=== PATIENT | male | born 1960 | race Caucasian/White ===

== ENCOUNTER 2019-10-20 06:17 | Emergency (ER) | payer BC, SELFPAY ==
--- NOTE | ~2019-10-20 | CT_ITS ---
EXAMINATION: CT abdomen pelvis wo con DATE: 10/20/2019 07:13 INDICATION: Left flank pain. Left lower back pain. TECHNIQUE: Computed tomography (CT) of the abdomen and pelvis was performed without intravenous contr ast. Automated exposure control and iterative reconstruction technique were employed. The dose-length product was 701.04 mGy-cm. COMPARISON: None. FINDINGS: The visualized portions of the lung bases demonstrate mild atelectasis. No pleural effusion . The heart size is normal. No pericardial effusion. The liver and spleen are normal. There are galls tones in the gallbladder, which is normal in size. The pancreas and adrenal glands are normal. 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 There is no uro lithiasis. The prostate is mildly enlarged. There are no dilated loops of bowel. The appendix is norm al. There are no pathologically enlarged lymph nodes. There is no free intraperitoneal fluid. Promine nt fat in left inguinal canal may be a hernia. There is mild thoracolumbar spondylosis. There are noble dging endplate osteophytes at multiple levels in the thoracic spine, consistent with diffuse idiopath ic skeletal hyperostosis (DISH). IMPRESSION: 1. No urolithiasis. 2. Cholelithiasis. No evidence of acute cholecystitis. 3. Asymmetric prominent fat in the left inguinal canal, which may be a hernia. Reviewed, dictated and finalized at location A.
--- NOTE | 2019-10-20 06:20 | ED.BACK ---
HPI - Back Pain/Injury General Chief Complaint: Back Pain/Injury <Graciela Julio MD - Last Filed: 10/20/19 07:20> Stated Complaint: Really bad pain in back <Graciela Julio MD - Last Filed: 10/20/19 07:20> Time Seen by Provider: 10/20/19 06:22 <Graciela Julio MD - Last Filed: 10/20/19 07:20> Source: patient and family <Graciela Julio MD - Last Filed: 10/20/19 07:20> Mode of arrival: ambulatory <Graciela Julio MD - Last Filed: 10/20/19 07:20> Limitations: no limitations <Graciela Julio MD - Last Filed: 10/20/19 07:20> History of Present Illness HPI Narrative: Patient is a 59-year-old male who presents for evaluation of left lower back pain. Pain is described as sharp, stabbing in nature in the left flank region. Patient states symptoms started around midnight and have progressed into the morning. Patient denies any recent heavy lifting. He reports radiation of the pain down his bottom and his left leg. He states typically he has back pain on the right side of his lower back but has never experienced left-sided back pain before. Pt states this feels different than typical lower back pain. He denies testicular pain, hematuria, dysuria. No suprapubic pain or upper abdominal pain. No fever or chest pain. Patient has had some nausea. No history of nephrolithiasis. Movement does aggravate the pain. <Graciela Julio MD - Last Filed: 10/20/19 07:20> Related Data Allergies/Adverse Reactions: Allergies Allergy/AdvReac Type Severity Reaction Status Date / Time Penicillins Allergy Unknown UNKNOWN Verified 10/20/19 06:24 phenytoin Allergy Unknown UNKNOWN Verified 10/20/19 06:24 <Graciela Julio MD - Last Filed: 10/20/19 07:20> Review of Systems Review of Systems: Narrative: CONSTITUTIONAL: Denies fever, chills, or sweats. CARDIOVASCULAR: Denies chest pain RESPIRATORY: Denies cough or dyspnea. GASTROINTESTINAL: Denies abdominal pain, nausea, vomiting, or diarrhea. GENITOURINARY: Denies dysuria or hematuria. SKIN: Denies rash or itching. MUSCULOSKELETAL: Reports left lower back pain, denies joint pain or myalgias NEUROLOGIC: Denies headache, numbness, or weakness. <Graciela Julio MD - Last Filed: 10/20/19 07:20> [facility] Past Medical History Medical History: Medical History (Updated 10/20/19 @ 08:46 by Kishor Quijano DO) Asthma Bronchitis Epilepsy Pneumonia <Graciela Julio MD - Last Filed: 10/20/19 07:20> Surgical History Surgical History: Surgical History (Updated 10/20/19 @ 06:21 by Graciela Julio MD) History of arthroscopic knee surgery <Graciela Julio MD - Last Filed: 10/20/19 07:20> Exam Narrative: Exam Narrative: GENERAL: Awake, alert, conversant HEAD: Normocephalic, atraumatic. EYES: PERRLA and EOMI. ENT: Nares clear, no rhinorrhea or epistaxis. Mucous membranes moist. NECK: Supple. CHEST: No respiratory distress, breathing even and non labored HEART: Regular rate, sinus rhythm ABDOMEN non distended, non tender, no suprapubic pain Thorax: Positive left lumbar paraspinal tenderness, positive left CVA tenderness which reproduces pain, but not exactly per patient EXTREMITIES: Normal range of motion. No edema. SKIN: Warm, dry, no rash. NEURO:No focal deficits. Alert and oriented x3 <Graciela Julio MD - Last Filed: 10/20/19 07:20> Course Course Emergency Course: Care signed out to me at shift change. Seen and evaluated by myself. Agree with initial H&P. Tender palpation left lower back paravertebral muscles L3-5 pain worse with movement. Discussed with patient results of workup and diagnosis. Discussed need for follow-up with primary care, proper use of medication, and reasons to return to the emergency department. Patient understands and agrees to current treatment plan <Kishor Quijano DO - Last Filed: 10/20/19 08:47> Vital Signs Vital signs: Vital Signs Temperature 98.0 F 10/20/19 0
[2019-10-20 06:21] VITALS: BP 136/76; PULSE 82; RESP 15; TEMP 36.7; O2SAT 100
[2019-10-20] MEDS: MORPHINE SULFATE 4 MG/ML INJ IV PUSH (06:53)
[2019-10-20] MEDS: ONDANSETRON INJ 4 MG/2 ML VIAL IV PUSH (06:54)
--- NOTE | 2019-10-20 06:55 | PC.NURSE ---
pt unable to void at this time.
[2019-10-20 06:56] LABS: Basophils Absolute Auto 0.1 K/mm3 (0.0-0.1); Basophils Percent Auto 1.2 % (0.2-1.2); Eosinophils Absolute Auto 0.2 K/mm3 (0-0.3); Eosinophils Percent Auto 2.3 % (0-4.4); Hematocrit 47.3 % (42.0-52.0); Hemoglobin 15.7 g/dL (14.0-18.0); Immature Granulocyte Absolute 0.02 K/mm3 (0.00-0.031); Immature Granulocyte Percent A 0.3 % (0-0.5); Lymphocytes Absolute Auto 1.54 K/mm3 (0.9-3.2); Lymphocytes Percent Auto 23.4 % (18.3-44.2); Mean Corpuscular HGB Conc 33.2 g/dl (32-36); Mean Corpuscular Volume 87.4 fl (80-100); Mean Platelet Volume 10.7 fl (7.4-10.4); Monocytes Absolute Auto 0.4 K/mm3 (0.1-0.6); Monocytes Percent Auto 6.4 % (2.6-8.5); Neutrophils Absolute Auto 4.4 K/mm3 (1.3-6.7); Neutrophils Percent Auto 66.4 % (45.5-73.1); Platelet Count Result 264 k/mm3 (150-375); Red Blood Count 5.41 M/mm3 (4.6-6.20); Red Cell Distribution Width 11.9 % (11.5-14.5); White Blood Count 6.6 K/mm3 (4.5-10.0)
[2019-10-20] MEDS: ACETAMINOPHEN 500 MG TABLET 1000 MG PO (06:59)
[2019-10-20 07:04] VITALS: BP 125/78; PULSE 67; RESP 19; O2SAT 97
[2019-10-20 07:08] LABS: Blood Urea Nitrogen 16 mg/dL (9-20); Calcium 9.8 mg/dL (8.4-10.2); Carbon Dioxide 22 mmol/L (22-30); Chloride 103 mmol/L (98-107); Estimated Glomerular Filt Rate > 60; Glucose 149 mg/dL (75-110); Potassium 4.2 mmol/L (3.4-5.0); Sodium 138 mmol/L (137-145)
[2019-10-20 08:37] LABS: Add Urine Microscopic? YES; Appearance Urine Clear (Clear); Bilirubin Urine Negative (Negative); Blood Urine Negative (Negative); Color Urine Yellow (Yellow); Glucose Urine UA 3+ mg/dL (Negative); Ketones Urine Negative (Negative); Leukocyte Esterase Ur Negative LEU/UL (Negative); Nitrate Urine Negative (Negative); Protein Urine Negative (Negative); RBC Urine 0-2 /hpf (0-2); Specific Grav Ur 1.037 (1.001-1.035); Squamous Epithelial Cell Urine Rare /hpf (Few); Urobilinogen Urine Negative mg/dL (<2.0); WBC Urine 0-3 /hpf
[2019-10-20 08:56] VITALS: BP 135/88; PULSE 65; RESP 16
== END 2019-10-20 08:58 | disposition home or self-care (01) ==
PROVIDERS: Emergency Medicine; Emergency Provider Emergency Medicine; PCP Family Medicine
DX: M54.5 Low back pain (principal); J45.909 Unspecified asthma, uncomplicated; G40.909 Epilepsy, unspecified, not intractable, without status epilepticus
CPT/HCPCS: 36415; 74176; 80048; 81001; 85025; 96374; 96375; 99284; A9270; J2270; J2405

== ENCOUNTER 2020-05-31 03:54 | Emergency (ER) | payer BC, SELFPAY ==
--- NOTE | ~2020-05-31 | XR_ITS ---
EXAMINATION: XR chest 1V portable EXAM DATE: 05/31/2020 04:48 INDICATION: Cough and shortness of breath. TECHNIQUE: Portable AP frontal chest x-ray was obtained. Comparison is made to prior examination from 04/22/2016. FINDINGS: The lungs are clear. There are no pleural effusions. The cardiomediastinal silhouette is within normal limits. There is no pneumothorax suspected. The bones and soft tissues are unremarkab le. Mild hyperinflation. IMPRESSION: Mild hyperinflation. Reviewed, dictated and finalized at location A. AT CONTROL MANAGER IMPRESSION: Mild hyperinflation.
[2020-05-31 04:02] VITALS: BP 149/93; PULSE 88; RESP 19; TEMP 37; O2SAT 99
--- NOTE | 2020-05-31 04:12 | ECG_ITS ---
Measurements Intervals [place] Rate: 85 P: 60 ME: 128 QRS: 41 QRSD: 101 T: 54 QT: 341 QTc: 408 Interpretive Statements SINUS RHYTHM VENTRICULAR PREMATURE COMPLEX BASELINE ARTIFACT- I, III, AVL BORDERLINE ECG Electronically Signed On 05-31-2020 6:31:46 PREVENTIVE MAINTENANCE COORDINATOR by Dago Vegas D.O.
--- NOTE | 2020-05-31 04:15 | ED.GENADULT ---
HPI - General Adult General Chief complaint: Unspecified Stated complaint: Feel like crap Time Seen by Provider: 05/31/20 04:03 History of Present Illness HPI narrative: Patient [id number] present chief, feels like crap patient states that today he started feeling generalized body aches report that he has had a little bit of a cough states that he had some runny nose and also reports that when he drank some orange juice his stomach felt nauseated and kind of bloated. Patient denies fever denies chills reports that he is not had Covid exposure reports that he has been wearing a mask. Related Data Allergies Allergy/AdvReac Type Severity Reaction Status Date / Time Penicillins Allergy Unknown UNKNOWN Verified 05/31/20 04:05 phenytoin Allergy Unknown UNKNOWN Verified 05/31/20 04:05 Review of Systems Review of Systems: Narrative: A 10 system review of systems was completed on the patient and is negative except for what is stated in the HPI. Nursing and ancillary documentation was reviewed. [facility] Past Medical History Medical History Asthma Bronchitis Epilepsy Pneumonia Surgical History Surgical History History of arthroscopic knee surgery Social History Social History Gender identity (if verbalized by the patient): Male Exam Narrative: Exam Narrative: GENERAL: Well-appearing, well-nourished, and in no acute distress. HEAD: Normocephalic, atraumatic. EYES: PERRLA and EOMI. ENT: Nares clear, no rhinorrhea or epistaxis. Mucous membranes moist. NECK: Supple. CHEST: Clear to auscultation. No respiratory distress. HEART: Regular rate and rhythm. No murmur heard. Normal peripheral pulses. ABDOMEN: Soft, nontender, nondistended, normal active bowel sounds. EXTREMITIES: Normal range of motion. No edema. SKIN: Warm, dry, no rash. NEURO: No focal deficits. Alert and oriented x3. PSYCH: Normal mood and affect. Course Vital Signs Vital signs: Vital Signs Temperature 37.0 C 05/31/20 04:02 Pulse Rate 88 05/31/20 04:02 Respiratory Rate 19 05/31/20 04:02 Blood Pressure 149/93 H 05/31/20 04:02 Pulse Oximetry 99 05/31/20 04:02 Temperature 37.0 C 05/31/20 04:02 Pulse Rate 88 05/31/20 04:02 Respiratory Rate 19 05/31/20 04:02 Blood Pressure 149/93 H 05/31/20 04:02 Pulse Oximetry 99 05/31/20 04:02 Medical Decision Making Vital Signs Vital Signs: Vital Signs Temperature 37.0 C 05/31/20 04:02 Pulse Rate 88 05/31/20 04:02 Respiratory Rate 19 05/31/20 04:02 Blood Pressure 149/93 H 05/31/20 04:02 Pulse Oximetry 99 05/31/20 04:02 Temperature 37.0 C 05/31/20 04:02 Pulse Rate 88 05/31/20 04:02 Respiratory Rate 19 05/31/20 04:02 Blood Pressure 149/93 H 05/31/20 04:02 Pulse Oximetry 99 05/31/20 04:02 Lab Data Result diagrams: 05/31/20 04:20 05/31/20 04:20 Labs: Lab Results 05/31/20 05/31/20 05/31/20 Range/Units 04:20 04:20 04:20 WBC 4.3 L (4.5-10.0) K/mm3 RBC 4.85 (4.6-6.20) M/mm3 Hgb 14.3 (14.0-18.0) g/dL Hct 42.1 (42.0-52.0) % MCV 86.8 (80-100) fl MCH 29.5 (26-34) pg MCHC 34.0 (32-36) g/dl RDW 11.9 (11.5-14.5) % Plt Count 193 (150-375) k/mm3 MPV 9.9 (7.4-10.4) fl Immature Gran % (Auto) 0.2 (0-0.5) % Neut % (Auto) 62.7 (45.5-73.1) % Lymph % (Auto) 18.6 (18.3-44.2) % [place] % (Auto) 16.2 H (2.6-8.5) % Eos % (Auto) 1.6 (0-4.4) % Baso % (Auto) 0.7 (0.2-1.2) % Lymph # (Auto) 0.80 L (0.9-3.2) K/mm3 [place] # (Auto) 0.7 H (0.1-0.6) K/mm3 Eos # (Auto) 0.1 (0-0.3) K/mm3 Baso # (Auto) 0.0 (0.0-0.1) K/mm3 Abs Immat Gran (auto) 0.01 (0.00-0.031) K/mm3 Absolute Neuts (auto) 2.7 (1.3-6.7) K/mm3 Absolute Nucleated RBC 0.0 (0.0-0.012) K/
[2020-05-31 04:27] LABS: Basophils Percent Auto 0.7 % (0.2-1.2); Eosinophils Absolute Auto 0.1 K/mm3 (0-0.3); Eosinophils Percent Auto 1.6 % (0-4.4); Hematocrit 42.1 % (42.0-52.0); Hemoglobin 14.3 g/dL (14.0-18.0); Immature Granulocyte Absolute 0.01 K/mm3 (0.00-0.031); Immature Granulocyte Percent A 0.2 % (0-0.5); Lymphocytes Percent Auto 18.6 % (18.3-44.2); Mean Corpuscular Hemoglobin 29.5 pg (26-34); Mean Corpuscular Volume 86.8 fl (80-100); Mean Platelet Volume 9.9 fl (7.4-10.4); Monocytes Absolute Auto 0.7 K/mm3 (0.1-0.6); Monocytes Percent Auto 16.2 % (2.6-8.5); Neutrophils Absolute Auto 2.7 K/mm3 (1.3-6.7); Neutrophils Percent Auto 62.7 % (45.5-73.1); Platelet Count Result 193 k/mm3 (150-375); Red Blood Count 4.85 M/mm3 (4.6-6.20); Red Cell Distribution Width 11.9 % (11.5-14.5); White Blood Count 4.3 K/mm3 (4.5-10.0)
[2020-05-31] MEDS: SODIUM CHLORIDE 0.9% IV 1,000 ML 999 ML IV CONT (04:28)
[2020-05-31] MEDS: ONDANSETRON INJ 4 MG/2 ML VIAL IV PUSH (04:28)
[2020-05-31 04:38] LABS: Add Urine Microscopic? YES; Appearance Urine Clear (Clear); Bilirubin Urine Negative (Negative); Blood Urine Negative (Negative); Color Urine Straw (Yellow); Glucose Urine UA 3+ mg/dL (Negative); Ketones Urine Negative (Negative); Leukocyte Esterase Ur Negative LEU/UL (Negative); Nitrate Urine Negative (Negative); Protein Urine Negative (Negative); RBC Urine 0-2 /hpf (0-2); Squamous Epithelial Cell Urine Rare /hpf (Few); Urobilinogen Urine Negative mg/dL (<2.0); WBC Urine 0-3 /hpf
[2020-05-31 04:43] LABS: Alanine Aminotransferase 21 U/L (4-50); Albumin Level 4.4 g/dL (3.5-5.1); Alkaline Phosphatase 94 U/L (38-126); Anion Gap 6 mmol/L (8-16); Aspartate Amino Transferase 31 U/L (17-59); Bilirubin,Total 1.3 mg/dL (0.2-1.3); Blood Urea Nitrogen 12 mg/dL (9-20); Calcium 8.9 mg/dL (8.4-10.2); Carbon Dioxide 28 mmol/L (22-30); Chloride 102 mmol/L (98-107); Estimated CRCL calculation 115 ml/min; Estimated Glomerular Filt Rate > 60; Glucose 155 mg/dL (75-110); Lactic Acid Reflex 1.8 mmol/L (0.7-2.1); Lipase 74 U/L (23-300); Potassium 4.1 mmol/L (3.4-5.0); Sodium 136 mmol/L (137-145)
[2020-05-31 04:54] LABS: Troponin I < 0.012 ng/mL (0.000-0.034)
[2020-05-31 05:28] VITALS: BP 130/87; PULSE 98; RESP 17; O2SAT 97
[2020-05-31 14:05] LABS: SARS-CoV-2 RNA PCR Positive
== END 2020-05-31 05:28 | disposition home or self-care (01) ==
PROVIDERS: Emergency Provider Emergency Medicine; Family Provider Family Medicine; PCP Family Medicine
DX: U07.1 COVID-19 (principal); J45.909 Unspecified asthma, uncomplicated; I49.3 Ventricular premature depolarization
CPT/HCPCS: 36415; 71045; 80053; 81001; 83605; 83690; 84484; 85025; 93005; 96361; 96374; 99284; C9803; J2405; J7030; U0003; U0005

== ENCOUNTER 2020-06-13 11:52 | Outpatient (CLI) | payer BC, SELFPAY ==
--- NOTE | ~2020-06-13 | XR_ITS ---
EXAMINATION: XR chest 2V DATE: 06/13/2020 12:16 INDICATION: COVID-19 pneumonia. TECHNIQUE: Frontal and lateral views of the chest were obtained. COMPARISON: Chest single view 05/31/2020, CT abdomen and pelvis 10/20/2019 FINDINGS: There is mild scarring at the lung apices. There are peripheral airspace opacities in left mid and lower lung zones and right midlung zone. No pleural effusion or pneumothorax. The heart size is normal. IMPRESSION: 1. Peripheral airspace opacities in left mid and lower lung zones and right midlung zone, consistent with pneumonia. Reviewed, dictated and finalized at location A. ESS IMPROVEMENT MANAGER IMPRESSION: 1. Peripheral airspace opacities in left mid and lower lung zones and right mid lung zone, consistent with pneumonia.
== END 2020-06-13 11:53 | disposition home or self-care (01) ==
LOC: ANHIMG 12:00
PROVIDERS: PCP Family Medicine; Visit Provider Family Medicine
DX: U07.1 COVID-19 (principal); J12.82 Pneumonia due to coronavirus disease 2019; R91.8 Other nonspecific abnormal finding of lung field
CPT/HCPCS: 71046

== ENCOUNTER 2020-07-05 13:20 | Emergency (ER) | payer BC, SELFPAY ==
--- NOTE | ~2020-07-05 | CT_ITS ---
EXAMINATION: CT abdomen pelvis w con DATE: 07/05/2020 15:45 INDICATION: Left-sided abdominal pain TECHNIQUE: Computed tomography (CT) of the abdomen and pelvis was performed with 100 mL Omnipaque-350 intravenous contrast. Automated exposure control and iterative reconstruction technique were employe d. The dose-length product was 600.55 mGy-cm. COMPARISON: 07/05/2020 FINDINGS: Mild linear discoid atelectasis/scarring at the bilateral lung bases. Heart size is normal. No perica rdial or pleural effusion. Again seen are small high attenuation gallstones layering in the dependent aspect of the otherwise normal-appearing gallbladder. 11 mm peripheral low-attenuation lesion in seg ment IVb of the liver which could represent a small hemangioma. Spleen, pancreas, bilateral adrenal g lands are normal. 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 N ormal appendix. Moderate amount of likely semiliquid stool throughout the colon suggestive of diarrhe a. There is fluid as well as some scattered feces scattered throughout multiple loops of small bowel without keerthi dilation or discrete transition point to suggest obstruction but suggestive of ileus. N o abnormal bowel wall thickening or obstruction. Bladder is normal. Prostatomegaly. Small fat-contain ing left inguinal hernia. No free intraperitoneal gas or fluid. No pathologically enlarged abdominal or pelvic lymphadenopathy. There are bridging osteophytes at multiple levels in the lower thoracic sp ine, consistent with diffuse idiopathic skeletal hyperostosis (DISH). IMPRESSION: 1. Fluid-filled loops of bowel without evident obstruction suggestive of ileus and possible enteritis . 2. Cholelithiasis. 3. Prostamegaly. 4. Small fat-containing left inguinal hernia. Reviewed, dictated and finalized at location B. HERMAL POWERPLANT SUPERVISOR IMPRESSION: 1. Fluid-filled loops of bowel without evident obstruction suggestive of ileus and possible enteritis. 2. Cholelithiasis. 3. Prostamegaly. 4. Small fat-containing left inguinal hernia.
[2020-07-05 13:38] VITALS: BP 148/87; PULSE 98; RESP 18; TEMP 36.9; O2SAT 99
[2020-07-05 14:01] LABS: Basophils Absolute Auto 0.1 K/mm3 (0.0-0.1); Basophils Percent Auto 1.3 % (0.2-1.2); Eosinophils Absolute Auto 0.2 K/mm3 (0-0.3); Eosinophils Percent Auto 2.1 % (0-4.4); Hematocrit 44.5 % (42.0-52.0); Hemoglobin 14.7 g/dL (14.0-18.0); Immature Granulocyte Absolute 0.02 K/mm3 (0.00-0.031); Immature Granulocyte Percent A 0.3 % (0-0.5); Lymphocytes Absolute Auto 1.71 K/mm3 (0.9-3.2); Lymphocytes Percent Auto 24.3 % (18.3-44.2); Mean Corpuscular Hemoglobin 29.4 pg (26-34); Monocytes Absolute Auto 0.5 K/mm3 (0.1-0.6); Monocytes Percent Auto 7.5 % (2.6-8.5); Neutrophils Absolute Auto 4.6 K/mm3 (1.3-6.7); Neutrophils Percent Auto 64.5 % (45.5-73.1); Platelet Count Result 272 k/mm3 (150-375); Red Cell Distribution Width 12.7 % (11.5-14.5); White Blood Count 7.1 K/mm3 (4.5-10.0)
[2020-07-05 14:12] LABS: Alanine Aminotransferase 18 U/L (4-50); Albumin Level 4.3 g/dL (3.5-5.1); Alkaline Phosphatase 103 U/L (38-126); Anion Gap 7 mmol/L (8-16); Aspartate Amino Transferase 26 U/L (17-59); Bilirubin,Total 1.3 mg/dL (0.2-1.3); Blood Urea Nitrogen 17 mg/dL (9-20); Calcium 8.4 mg/dL (8.4-10.2); Carbon Dioxide 23 mmol/L (22-30); Chloride 105 mmol/L (98-107); Estimated CRCL calculation 110 ml/min; Estimated Glomerular Filt Rate > 60; Glucose 173 mg/dL (75-110); Lipase 90 U/L (23-300); Potassium 5.2 mmol/L (3.4-5.0); Sodium 135 mmol/L (137-145)
--- NOTE | 2020-07-05 15:08 | ED.ABDPAIN ---
HPI - Abdominal Pain General Chief Complaint: Abdominal Pain Stated Complaint: abd pain Time Seen by Provider: 07/05/20 15:03 Source: RN notes reviewed History of Present Illness HPI narrative: Patient presents emergency department from home for less abdominal pain. Patient states pain began 2 days ago initially was a sharp and stabbing pain is now is dull pain does not radiate denies any fevers or chills, nausea, vomiting, diarrhea or any other symptoms states he took no home medication for the symptoms Related Data Allergies Allergy/AdvReac Type Severity Reaction Status Date / Time Penicillins Allergy Unknown UNKNOWN Verified 07/05/20 15:07 phenytoin Allergy Unknown UNKNOWN Verified 07/05/20 15:07 Review of Systems Review of Systems: Narrative: Gen.: Denies fevers or chills ENT: Denies congestion Respiratory: Denies shortness of breath or cough CV: Denies chest pain or palpitations GI: See HPI denies burning, urgency, frequency or hematuria Musculoskeletal: Denies back pain or muscle pain Neuro: Denies numbness, tingling, weakness or focal weakness Skin: Denies rash Except as documented, all other systems reviewed and negative [facility] Past Medical History Medical History Asthma Bronchitis Epilepsy Pneumonia Surgical History Surgical History History of arthroscopic knee surgery Social History Social History (Updated 07/05/20 @ 15:09 by Kishor Quijano DO) Smoking status: Never smoker Gender identity (if verbalized by the patient): Male Exam Narrative: Exam Narrative: APPEARANCE: No acute distress, nontoxic, resting in bed HEENT: Normocephalic, atraumatic, OMM RESPIRATORY: No respiratory distress, clear to auscultation bilaterally with no rhonchi wheezing or rales CARDIOVASCULAR: RRR s murmur ABDOMINAL: Soft, nondistended, tender palpation left upper quadrant left lower quadrant no tenderness in right upper quadrant right lower quadrant no rebound or guarding MUSCULOSKELETAl: Moves all extremities. No clubbing, cyanosis or edema. NEURO: Awake and alert. Following commands, speech normal, no focal deficits SKIN:: Warm, dry. Normal Color PSYCHIATRIC: Normal affect/mood Course Course Emergency Course: Discussed with patient results of workup and diagnosis. Discussed need for follow-up with primary care, proper use of medication, and reasons to return to the emergency department. Patient understands and agrees to current treatment plan Vital Signs Vital signs: Vital Signs Temperature 98.5 F 07/05/20 13:38 Pulse Rate 98 07/05/20 13:38 Respiratory Rate 18 07/05/20 13:38 Blood Pressure 148/87 H 07/05/20 13:38 Pulse Oximetry 99 07/05/20 13:38 Temperature 98.5 F 07/05/20 13:38 Pulse Rate 98 07/05/20 13:38 Respiratory Rate 18 07/05/20 13:38 Blood Pressure 148/87 H 07/05/20 13:38 Pulse Oximetry 99 07/05/20 13:38 MDM - Abdominal Pain MDM Narrative Medical decision making narrative: Patient with no vomiting or diarrhea no white count on exam today CT scan shows questionable ileus versus enteritis no surgical abdomen on exam discussed with patient he would like to be discharged home will discharge with bowel rest and follow-up as an outpatient Lab Data Result diagrams: 07/05/20 13:44 07/05/20 13:44 Labs: Lab Results 07/05/20 07/05/20 07/05/20 Range/Units 13:44 13:44 16:14 WBC 7.1 (4.5-10.0) K/mm3 RBC 5.00 (4.6-6.20) M/mm3 Hgb 14.7 (14.0-18.0) g/dL Hct 44.5 (42.0-52.0) % MCV 89.0 (80-100) fl MCH 29.4 (26-34) pg MCHC 33.0 (32-36) g/dl RDW 12.7 (11.5-14.5) % Plt Count 272 (150-375) k/mm3 MPV 10.0 (7.4-10.4) fl Immature Gran % (Auto) 0.3 (0-0.5) % Neut % (Auto) 64.5 (45.5-73.1) % Lymph % (Auto) 24.3 (18.3-44.2) % [place] % (Auto) 7.5 (2.6-8.5) % Eos % (A
[2020-07-05] MEDS: SODIUM CHLORIDE 0.9% IV 1,000 ML 999 ML IV CONT (15:18)
[2020-07-05 16:23] LABS: Add Urine Microscopic? YES; Appearance Urine Clear (Clear); Bilirubin Urine Negative (Negative); Blood Urine Negative (Negative); Color Urine Straw (Yellow); Glucose Urine UA 3+ mg/dL (Negative); Ketones Urine Negative (Negative); Leukocyte Esterase Ur Negative LEU/UL (Negative); Nitrate Urine Negative (Negative); Protein Urine Negative (Negative); RBC Urine 0-2 /hpf (0-2); Urobilinogen Urine Negative mg/dL (<2.0); WBC Urine 0-3 /hpf
[2020-07-05 16:31] LABS: Specific Grav Ur 1.032 (1.001-1.035)
[2020-07-05] MEDS: DICYCLOMINE HCL 10 MG CAPSULE 20 MG PO (16:44)
--- NOTE | 2020-07-05 17:52 | PC.NURSE ---
Sitting at bedside. Abd pain decreased. ERP aware.
== END 2020-07-05 18:26 | disposition home or self-care (01) ==
PROVIDERS: Emergency Provider Emergency Medicine; PCP Family Medicine
DX: K56.7 Ileus, unspecified (principal); J45.909 Unspecified asthma, uncomplicated; G40.909 Epilepsy, unspecified, not intractable, without status epilepticus; K80.20 Calculus of gallbladder without cholecystitis without obstruction; N40.0 Benign prostatic hyperplasia without lower urinary tract symptoms; K40.90 Unilateral inguinal hernia, without obstruction or gangrene, not specified as recurrent
CPT/HCPCS: 36415; 74177; 80053; 81001; 83690; 85025; 96361; 96374; 99284; A9270; J0131; J7030; Q9967

== ENCOUNTER 2020-07-19 10:43 | Outpatient (CLI) | payer BC, SELFPAY ==
[2020-07-19 11:16] LABS: Alanine Aminotransferase 15 U/L (4-50); Albumin Level 4.4 g/dL (3.5-5.1); Alkaline Phosphatase 91 U/L (38-126); Amylase 62 U/L (30-110); Aspartate Amino Transferase 22 U/L (17-59); Bilirubin,Total 0.9 mg/dL (0.2-1.3); Lipase 89 U/L (23-300)
== END 2020-07-19 10:44 | disposition home or self-care (01) ==
PROVIDERS: PCP Family Medicine; Visit Provider Surgery
DX: K80.20 Calculus of gallbladder without cholecystitis without obstruction (principal)
CPT/HCPCS: 36415; 80076; 82150; 83690

== ENCOUNTER 2020-07-24 01:42 | Day surgery (SDC) | payer BC, SELFPAY ==
[2020-07-18 11:34] VITALS: BMI 23.1
[2020-07-24] VITALS (9 sets, daily range): BP systolic 104–132; BP diastolic 57–77; PULSE 58–89; RESP 13–22; TEMP 36.6–36.8; O2SAT 96–100
[2020-07-24] MEDS: LACTATED RINGERS 1,000 ML 30 ML IV CONT ×2 (12:30→15:15)
[2020-07-24] MEDS: KETOROLAC 15 MG/ML VIAL (*BKC) IV PUSH (12:31)
[2020-07-24] MEDS: ACETAMINOPHEN 500 MG TABLET 1000 MG PO (12:31)
[2020-07-24 12:34] LABS: Glucose Point of Care 111 (65-105)
--- NOTE | 2020-07-24 12:46 | P.PNAN_ITS ---
Anes - Initial Pre Proc Eval Procedure: Operation Date: 07/24/20 13:30 Proposed Procedures p Laparoscopic Cholecystectomy, Possible Intraoperative Cholangiogram, Possible Open - Mason Riley MD Date/Time: 07/24/20 12:46 Surgeon: Mason Riley MD Pre Op Diagnosis: cholelithiasis Patient Data Age: 59 Gender: M Height: 1.98 m Weight: 98.8 kg Last Vital Signs Temp 36.8 C 07/24/20 12:24 Pulse 89 07/24/20 12:24 BP 124/77 07/24/20 12:24 Pulse Ox 98 07/24/20 12:24 Allergies Allergy/AdvReac Type Severity Reaction Status Date / Time Penicillins Allergy Unknown UNKNOWN Verified 07/18/20 11:31 phenytoin Allergy Unknown UNKNOWN Verified 07/18/20 11:31 Home Medications Medication Instructions Recorded Confirmed Type cyclobenzaprine 10 mg PO TID PRN #10 tablet 10/20/19 07/24/20 Rx ibuprofen [IBU] 600 mg PO Q6H PRN #20 tablet 10/20/19 07/24/20 Rx ondansetron 4 mg PO Q6H PRN #10 tablet 07/05/20 07/24/20 Rx aspirin 81 mg PO DAILY 07/18/20 07/24/20 History empagliflozin [Jardiance] 25 mg PO DAILY 07/18/20 07/24/20 History metformin 1,000 mg PO DAILY 07/18/20 07/24/20 History saw palmetto 320 mg PO DAILY 07/18/20 07/24/20 History vitamin B complex 1 tablet PO DAILY 07/18/20 07/24/20 History Laboratory Tests 07/24/20 12:26 POC Capillary Glucose 111 mg/dl H mg/dl (65-105) Patient hx anesthesia problems: none Family hx anesthesia problems: none PMFSH Past Medical History Medical History (Updated 07/24/20 @ 12:48 by Paul Horn DO) Asthma no meds Bronchitis Diabetes mellitus Epilepsy Pneumonia Surgical History Surgical History History of arthroscopic knee surgery Family History Family History Father Cancer Other Heart disease Social History Social History Smoking status: Never smoker Alcohol intake: former Alcohol use details: QUIT 30 YEARS AGO Substance use: never Substance use type: does not use Living arrangements: with family Gender identity (if verbalized by the patient): Male Spiritual care concerns: No Anes - Eval Final PreProcedure Day of Procedure 07/24/20 12:46 Patient weight: overweight Heart: regular rate and rhythm Lungs: clear to auscultation and normal air movement Airway: Mallampati scale class II Neurological: alert and oriented Last oral intake: >/= 8 hours ASA classification: III Emergent: no Anesthetic plan: proceed Anesthesia type and monitoring: general ETT and standard monitoring Informed Consent: The patient's anesthetic plan and its attendant risks and benefits were discussed with the patient/family/POA. Questions were solicited and answers provided to the satisfaction of the patient/family/POA.
--- NOTE | 2020-07-24 12:59 | WPDHPUPDATE1 ---
History and Physical Update Update Date/Time: 07/24/20 12:59 History and Physical has been reviewed, including an updated exam of the patient. There are NO changes in the patient's condition. Risks, benefits, and alternatives have been discussed and questions answered. Patient agrees to proceed with procedure.
[2020-07-24] MEDS: ceFAZolin 2 GM/D5W 50 ML 2 GM/50 ML BAG IVPB (13:29)
[2020-07-24] MEDS: BUPIVACAINE/EPINEPHRINE 0.5% 30 ML VIAL INFILTRATE (14:02)
--- NOTE | 2020-07-24 15:21 | P.OP_ITS ---
Procedure Note - Detailed Date of procedure: 07/24/20 Pre-op diagnosis: cholelithiasis Chronic Cholecystitis with Cholelithiasis Post-op diagnosis: other (1. same as above. 2. Small Right inguinal hernia (suspected indirect).) Procedure performed: Laparoscopic Cholecystectomy Description of procedure: Patient was seen preoperatively in the holding area and risks, benefits and alternatives confirmed. Patient was taken to the operating room and general anesthesia was induced. A time out was then preformed with the surgery team confirming patient and site of surgery. The abdomen was prepped and draped in the usual sterile fashion. Incision was made just below the umbilicus with an 11 blade knife. I placed 2 stay sutures of O- Vicryl on either side of the mid- line fascia beneath the umbilicus and was then able to slide in the Silva cannula through the fascial defect into the peritoneum. First under low flow and then under high flow the abdomen was insufflated with carbon dioxide never exceeding a pressure of 14. Three 5 mm trocars were then introduced under direct vision. The following trocars were introduced under direct vision: a 5 mm in the epigastrium and two 5 mm trocars along the right costal margin laterally in the subcostal area. Careful inspection of the abdomen revealed the beginnings of a small right inguinal hernia. We could not adequately see the left groin area where the colon came across the inguinal area. There were no significant adhesions to the gallbladder. There were some omental adhesions to the underside of the right lobe of the liver just lateral to the gallbladder which I took down Bovie cautery to try to avoid tearing the liver capsule as we retracted the gallbladder up over the liver. I then carefully used the L-shaped cautery and the [place] dissector to dissect out the triangle of [place]. I then was able to dissect out both the cystic duct and cystic artery and identify a window of safety. The gall bladder was grasped and the cystic duct and artery were dissected free and clipped with an 5 mm endo- clip casing puller. The cystic duct and artery were clipped with use of 2 clips on the patient's side 1 on the gallbladder side utilizing a 5 mm endoclip-casing puller. The cystic duct was then transected. The cystic artery was also transected at this point. The gall bladder was removed using electrocautery and then removed from the abdomen using a large 10 mm grasper via the umbilical incision. Bovie cautery was used in several places in the gallbladder bed which caused some bleeding. Estimated blood loss about 25 cc. The trocars were removed visualizing hemostasis and the remaining gas evacuated. The large trocar site at the umbilicus was closed with use of the 2 stay sutures of 0 Vicryl mentioned above and also a figure of 8 O-Vicryl suture. The 2 stay sutures mentioned above on either side of the fascia were also tied together to help approximate this midline fascia. Further local anesthetic was placed into each incision for postop pain control. The skin incisions were closed with subcuticular suture of 4-0 Monocryl. Surgical glue then was applied to all the incisions. Patient tolerated the procedure well was taken to the recovery room in good condition. Implants: none Anesthesia: CATHY Surgeon: Mason Riley MD Skip Operator: Basilio GARCIA, OR construction administrative assistant Estimated blood loss (mL): 25 Drains: No Packing: No Pathology: yes (Gallbladder) Complications: No immediate complications Condition: stable Disposition: PACU Findings: Upon removing the gallbladder careful palpation revealed small stones within the gallbladder. Gallbladder did not appear to be acutely inflamed.
[2020-07-24] MEDS: fentaNYL CITRATE INJ (*CRX) 100 MCG/2 ML VIAL 25 MCG IV PUSH ×5 (15:38→16:05)
[2020-07-24] MEDS: ONDANSETRON INJ 4 MG/2 ML VIAL IV PUSH (16:44)
[2020-07-24] MEDS: KETOROLAC 30 MG/ML VIAL (*BKC) IV PUSH (16:49)
[2020-07-24 17:16] LABS: Glucose Point of Care 162 (65-105)
== END 2020-07-24 17:52 | disposition home or self-care (01) ==
PROVIDERS: PCP Family Medicine; Visit Provider Surgery
PROC: 0FT44ZZ Resection of Gallbladder, Percutaneous Endoscopic Approach (ICD-10-PCS; CPT 47562; principal; 2020-07-24 13:30)
DX: K81.1 Chronic cholecystitis (principal); K40.90 Unilateral inguinal hernia, without obstruction or gangrene, not specified as recurrent; Z79.82 Long term (current) use of aspirin; Z79.84 Long term (current) use of oral hypoglycemic drugs; J45.909 Unspecified asthma, uncomplicated; E11.9 Type 2 diabetes mellitus without complications; G40.909 Epilepsy, unspecified, not intractable, without status epilepticus; Z87.891 Personal history of nicotine dependence
CPT/HCPCS: 47562; 82948; 88304; A9270; J0330; J0690; J1885; J2250; J2405; J2704; J3010; J7120; Q9966

== ENCOUNTER 2020-10-28 11:19 | Outpatient (CLI) | payer BC, SELFPAY ==
[2020-10-28 11:59] LABS: Basophils Absolute Auto 0.1 K/mm3 (0.0-0.1); Basophils Percent Auto 0.9 % (0.2-1.2); Eosinophils Absolute Auto 0.2 K/mm3 (0-0.3); Eosinophils Percent Auto 2.8 % (0-4.4); Hematocrit 40.2 % (42.0-52.0); Hemoglobin 13.5 g/dL (14.0-18.0); Immature Granulocyte Absolute 0.01 K/mm3 (0.00-0.031); Immature Granulocyte Percent A 0.2 % (0-0.5); Lymphocytes Absolute Auto 1.64 K/mm3 (0.9-3.2); Lymphocytes Percent Auto 28.6 % (18.3-44.2); Mean Corpuscular HGB Conc 33.6 g/dl (32-36); Mean Corpuscular Hemoglobin 28.9 pg (26-34); Mean Corpuscular Volume 86.1 fl (80-100); Mean Platelet Volume 10.6 fl (7.4-10.4); Monocytes Absolute Auto 0.4 K/mm3 (0.1-0.6); Monocytes Percent Auto 7.2 % (2.6-8.5); Neutrophils Absolute Auto 3.5 K/mm3 (1.3-6.7); Neutrophils Percent Auto 60.3 % (45.5-73.1); Platelet Count Result 233 k/mm3 (150-375); Red Blood Count 4.67 M/mm3 (4.6-6.20); Red Cell Distribution Width 11.5 % (11.5-14.5); White Blood Count 5.7 K/mm3 (4.5-10.0)
[2020-10-28 12:09] LABS: Alanine Aminotransferase 16 U/L (4-50); Albumin Level 4.3 g/dL (3.5-5.1); Alkaline Phosphatase 93 U/L (38-126); Anion Gap 8 mmol/L (8-16); Aspartate Amino Transferase 21 U/L (17-59); Bilirubin,Total 0.8 mg/dL (0.2-1.3); Blood Urea Nitrogen 14 mg/dL (9-20); Calcium 8.7 mg/dL (8.4-10.2); Carbon Dioxide 26 mmol/L (22-30); Chloride 104 mmol/L (98-107); Cholesterol 164 mg/dL (0-200); Estimated Glomerular Filt Rate > 60; Glucose 174 mg/dL (75-110); HDL Direct 55 mg/dL; Potassium 3.6 mmol/L (3.4-5.0); Sodium 138 mmol/L (137-145); Triglycerides 100 mg/dL (<150)
[2020-10-28 12:20] LABS: LDL Cholesterol Direct 80 mg/dL
[2020-10-28 12:39] LABS: Prostate Specific Antigen 1.8 ng/mL (< OR = 4.0)
[2020-10-28 12:49] LABS: Hemoglobin A1C 7.1 % (<5.7)
[2020-10-28 13:32] LABS: Thyroid Stimulating Hormone Reflex 0.731 uIU/mL (0.465-4.68)
== END 2020-10-28 11:20 | disposition home or self-care (01) ==
PROVIDERS: PCP Family Medicine; Visit Provider Family Medicine
DX: E11.69 Type 2 diabetes mellitus with other specified complication (principal); I10 Essential (primary) hypertension; E78.2 Mixed hyperlipidemia; Z12.5 Encounter for screening for malignant neoplasm of prostate
CPT/HCPCS: 36415; 80053; 80061; 83036; 84153; 84443; 85025; G0103

== ENCOUNTER 2020-12-01 13:12 | Emergency (ER) | payer BC, SELFPAY ==
[2020-12-01 13:18] VITALS: BP 174/110; PULSE 69; RESP 13; TEMP 37.2; O2SAT 99
[2020-12-01 14:07] LABS: Basophils Absolute Auto 0.1 K/mm3 (0.0-0.1); Basophils Percent Auto 1.1 % (0.2-1.2); Eosinophils Absolute Auto 0.1 K/mm3 (0-0.3); Eosinophils Percent Auto 1.3 % (0-4.4); Hematocrit 45.4 % (42.0-52.0); Hemoglobin 15.1 g/dL (14.0-18.0); Immature Granulocyte Absolute 0.01 K/mm3 (0.00-0.031); Immature Granulocyte Percent A 0.1 % (0-0.5); Lymphocytes Absolute Auto 1.88 K/mm3 (0.9-3.2); Lymphocytes Percent Auto 24.9 % (18.3-44.2); Mean Corpuscular HGB Conc 33.3 g/dl (32-36); Mean Corpuscular Hemoglobin 29.4 pg (26-34); Mean Corpuscular Volume 88.5 fl (80-100); Mean Platelet Volume 10.6 fl (7.4-10.4); Monocytes Absolute Auto 0.5 K/mm3 (0.1-0.6); Neutrophils Percent Auto 65.6 % (45.5-73.1); Platelet Count Result 245 k/mm3 (150-375); Red Blood Count 5.13 M/mm3 (4.6-6.20); Red Cell Distribution Width 12.2 % (11.5-14.5); White Blood Count 7.6 K/mm3 (4.5-10.0)
[2020-12-01] MEDS: MECLIZINE HCL 25 MG TABLET PO (14:08)
[2020-12-01] MEDS: SODIUM CHLORIDE 0.9% IV 1,000 ML 999 ML IV CONT (14:08)
[2020-12-01 14:09] VITALS: BP 144/91; PULSE 63; RESP 16; O2SAT 99
--- NOTE | 2020-12-01 14:09 | ECG_ITS ---
Measurements Intervals [place] Rate: 66 P: 79 VA: 128 QRS: 24 QRSD: 102 T: 20 QT: 375 QTc: 393 Interpretive Statements SINUS RHYTHM BASELINE ARTIFACT- II, III, AVF, V1-V2 BORDERLINE ECG Electronically Signed On 12-02-2020 15:28:08 CDT by Dago Vegas D.O.
[2020-12-01 14:16] LABS: Anion Gap 12 mmol/L (8-16); Blood Urea Nitrogen 13 mg/dL (9-20); Carbon Dioxide 22 mmol/L (22-30); Chloride 106 mmol/L (98-107); Estimated CRCL calculation 113 ml/min; Estimated Glomerular Filt Rate > 60; Glucose 170 mg/dL (65-110); Potassium 3.9 mmol/L (3.4-5.0); Sodium 140 mmol/L (137-145)
[2020-12-01 14:39] VITALS: BP 138/82; PULSE 62; RESP 15; O2SAT 99
[2020-12-01 15:53] VITALS: BP 152/84; PULSE 59; RESP 14; O2SAT 99
--- NOTE | 2020-12-01 16:08 | ED.DIZZY ---
HPI - Dizziness General Chief Complaint: Dizziness Stated Complaint: the world is spinning Time Seen by Provider: 12/01/20 13:27 History of Present Illness HPI Narrative: Patient is a 60-year-old male who presents ER with dizziness. Sudden onset. Spinning sensation that is worse when he turns his head. Associate with sweats and some nausea earlier. No fevers chills or sweats. No upper or lower extremit weakness. Has not tried any medication. Has not had this issue previously. Related Data Home Medications Medication Instructions Recorded Confirmed Jardiance 25 mg PO DAILY 07/18/20 08/08/20 metformin 1,000 mg PO DAILY 07/18/20 08/08/20 saw palmetto 320 mg PO DAILY 07/18/20 08/08/20 vitamin B complex 1 tablet PO DAILY 07/18/20 08/08/20 lisinopril 12/01/20 rosuvastatin mg 12/01/20 Allergies Allergy/AdvReac Type Severity Reaction Status Date / Time Penicillins Allergy Unknown UNKNOWN Verified 12/01/20 13:22 phenytoin Allergy Unknown UNKNOWN Verified 12/01/20 13:22 Review of Systems Review of Systems: All systems reviewed & are unremarkable except as noted in HPI and below Constitutional: Constitutional: Denies chills, Denies fever(s) and Denies weakness ENT: Reports dizziness, Denies nasal congestion and Denies sore throat Respiratory: Respiratory: Denies cough and Denies dyspnea Neurologic: Reports vertigo, Denies headache(s), Denies focal weakness and Denies numbness PMFSH Past Medical History Medical History Asthma no meds Bronchitis Diabetes mellitus Epilepsy Pneumonia Surgical History Surgical History History of arthroscopic knee surgery Hx laparoscopic cholecystectomy Family History Family History Father Cancer Other Heart disease Social History Social History (Updated 08/08/20 @ 08:21 by Amy Butcher CMA) Smoking status: Never smoker Alcohol intake: former Alcohol use details: QUIT 30 YEARS AGO Substance use: never Substance use type: does not use Additional occupation/education comments: in the bakery Gender identity (if verbalized by the patient): Male Spiritual care concerns: No Exam Narrative: GENERAL: Well-appearing, well-nourished, and in no acute distress. HEAD: Normocephalic, atraumatic. EYES: PERRL and EOMI. no nystagmus. ENT: Mucous membranes moist. TMs normal bilaterally. CHEST: Clear to auscultation. No respiratory distress. HEART: Regular rate and rhythm. Normal peripheral pulses. EXTREMITIES: Normal range of motion. No edema. NEURO: Alert and oriented x3. PSYCH: Normal mood and affect. Course Course Emergency Course: Patient feeling improved with meclizine and fluids. Feels comfortable discharge home. Vital Signs Vital signs: Vital Signs Temperature 99 F 12/01/20 13:18 Pulse Rate 69 12/01/20 13:18 Respiratory Rate 13 12/01/20 13:18 Blood Pressure 174/110 H 12/01/20 13:18 Pulse Oximetry 99 12/01/20 13:18 Temperature 99 F 12/01/20 13:18 Pulse Rate 59 L 12/01/20 15:53 Respiratory Rate 14 12/01/20 15:53 Blood Pressure 152/84 H 12/01/20 15:53 Pulse Oximetry 99 12/01/20 15:53 MDM - Dizziness Lab Data Result diagrams: 12/01/20 14:01 12/01/20 14:01 Labs: Lab Results 12/01/20 12/01/20 Range/Units 14:01 14:01 WBC 7.6 (4.5-10.0) K/mm3 RBC 5.13 (4.6-6.20) M/mm3 Hgb 15.1 (14.0-18.0) g/dL Hct 45.4 (42.0-52.0) % MCV 88.5 (80-100) fl MCH 29.4 (26-34) pg MCHC 33.3 (32-36) g/dl RDW 12.2 (11.5-14.5) % Plt Count 245 (150-375) k/mm3 MPV 10.6 H (7.4-10.4) fl Immature Gran % (Auto) 0.1 (0-0.5) % Neut % (Auto) 65.6 (45.5-73.1) % Lymph % (Auto) 24.9 (18.3-44.2) % [place] % (Auto) 7.0 (2.6-8.5) % Eos % (Auto) 1.3 (0-4.4) % Baso % (Auto) 1.
[2020-12-01 16:27] VITALS: BP 150/85; PULSE 65; RESP 20; O2SAT 100
== END 2020-12-01 16:34 | disposition home or self-care (01) ==
PROVIDERS: Emergency Provider Emergency Medicine; PCP Family Medicine
DX: R42 Dizziness and giddiness (principal); E11.9 Type 2 diabetes mellitus without complications; G40.909 Epilepsy, unspecified, not intractable, without status epilepticus; J45.909 Unspecified asthma, uncomplicated; Z79.899 Other long term (current) drug therapy; Z79.84 Long term (current) use of oral hypoglycemic drugs; Z87.01 Personal history of pneumonia (recurrent); Z87.891 Personal history of nicotine dependence; R94.31 Abnormal electrocardiogram [ECG] [EKG]
CPT/HCPCS: 36415; 80048; 85025; 93005; 96360; 99283; A9270; J7030

== ENCOUNTER 2021-01-16 08:14 | Outpatient (CLI) | payer BC, SELFPAY ==
[2021-01-16 08:45] LABS: Basophils Absolute Auto 0.1 K/mm3 (0.0-0.1); Basophils Percent Auto 1.1 % (0.2-1.2); Eosinophils Absolute Auto 0.2 K/mm3 (0-0.3); Eosinophils Percent Auto 2.2 % (0-4.4); Hematocrit 46.2 % (42.0-52.0); Immature Granulocyte Absolute 0.01 K/mm3 (0.00-0.031); Immature Granulocyte Percent A 0.1 % (0-0.5); Lymphocytes Absolute Auto 1.71 K/mm3 (0.9-3.2); Lymphocytes Percent Auto 23.3 % (18.3-44.2); Mean Corpuscular HGB Conc 32.5 g/dl (32-36); Mean Corpuscular Hemoglobin 28.8 pg (26-34); Mean Corpuscular Volume 88.7 fl (80-100); Monocytes Absolute Auto 0.5 K/mm3 (0.1-0.6); Monocytes Percent Auto 6.7 % (2.6-8.5); Neutrophils Absolute Auto 4.9 K/mm3 (1.3-6.7); Neutrophils Percent Auto 66.6 % (45.5-73.1); Platelet Count Result 260 k/mm3 (150-375); Red Blood Count 5.21 M/mm3 (4.6-6.20); Red Cell Distribution Width 11.8 % (11.5-14.5); White Blood Count 7.4 K/mm3 (4.5-10.0)
[2021-01-16 08:54] LABS: Alanine Aminotransferase 18 U/L (4-50); Albumin Level 4.5 g/dL (3.5-5.1); Alkaline Phosphatase 96 U/L (38-126); Anion Gap 11 mmol/L (8-16); Aspartate Amino Transferase 24 U/L (17-59); Bilirubin,Total 0.9 mg/dL (0.2-1.3); Blood Urea Nitrogen 14 mg/dL (9-20); Calcium 9.2 mg/dL (8.4-10.2); Carbon Dioxide 28 mmol/L (22-30); Chloride 101 mmol/L (98-107); Cholesterol 178 mg/dL (0-200); Estimated Glomerular Filt Rate > 60; Glucose 143 mg/dL (65-110); HDL Direct 62 mg/dL; Potassium 4.1 mmol/L (3.4-5.0); Sodium 140 mmol/L (137-145); Triglycerides 118 mg/dL (<150)
[2021-01-16 09:06] LABS: LDL Cholesterol Direct 87 mg/dL
[2021-01-16 09:24] LABS: Prostate Specific Antigen 2.2 ng/mL (< OR = 4.0)
== END 2021-01-16 08:15 | disposition home or self-care (01) ==
PROVIDERS: PCP Family Medicine; Visit Provider Family Medicine
DX: Z00.00 Encounter for general adult medical examination without abnormal findings (principal)
CPT/HCPCS: 36415; 80053; 80061; 84153; 85025

== ENCOUNTER 2021-03-07 13:03 | Emergency (ER) | payer BC, SELFPAY ==
--- NOTE | ~2021-03-07 | XR_ITS ---
XR chest 1V portable DATE: 03/07/2021 16:25 INDICATION: Fever, cough TECHNIQUE: Portable AP view on 03/24/2021 at 1621 hours COMPARISON: 06/13/2020 2 view chest FINDINGS: There is bilateral hyperinflation. No hilar or mediastinal enlargement. No pulmonary infi ltrate or consolidation, pulmonary vascular congestion or pleural effusion or pneumothorax. Normal heart size. Old healed fracture of mid shaft of left clavicle. Levoscoliosis and degenerative spurring of the spine. IMPRESSION: Bilateral hyperinflation Reviewed, dictated and finalized at location A. IMPRESSION: Bilateral hyperinflation
[2021-03-07 14:33] VITALS: BP 116/92; PULSE 90; RESP 18; TEMP 37.9; O2SAT 97
[2021-03-07] MEDS: ALBUTEROL SULFATE (*SP) AEROSOL 1 PUFF 2 PUFF INHALATION (16:40)
--- NOTE | 2021-03-07 16:54 | ED.URI ---
HPI - URI/Sore Throat General Chief Complaint: Upper Respiratory Infection Stated Complaint: cough, uri symptoms Time Seen by Provider: 03/07/21 16:09 Source: patient Mode of arrival: ambulatory Limitations: no limitations History of Present Illness HPI Narrative: This is a 60 year old male that presents to the ER for cold symptoms present since yesterday. Reports fever, cough, congestion, and sore throat. Patient is not COVID vaccinated. Denies chest pain or shortness of breath. Related Data Home Medications Medication Instructions Recorded Confirmed Jardiance 25 mg PO DAILY 07/18/20 08/08/20 metformin 1,000 mg PO DAILY 07/18/20 08/08/20 saw palmetto 320 mg PO DAILY 07/18/20 08/08/20 vitamin B complex 1 tablet PO DAILY 07/18/20 08/08/20 lisinopril 12/01/20 rosuvastatin mg 12/01/20 Allergies Allergy/AdvReac Type Severity Reaction Status Date / Time Penicillins Allergy Unknown UNKNOWN Verified 03/07/21 16:07 phenytoin Allergy Unknown UNKNOWN Verified 03/07/21 16:07 Review of Systems Review of Systems: CONSTITUTIONAL: Reports fever ENT: Reports rhinorrhea, congestion, sore throat CARDIOVASCULAR: Denies chest pain, or edema. RESPIRATORY: Reports cough. Denies dyspnea. MUSCULOSKELETAL: Reports myalgia. All systems reviewed & are unremarkable except as noted in HPI and below PMFSH Past Medical History Medical History Asthma no meds Bronchitis Diabetes mellitus Epilepsy Pneumonia Surgical History Surgical History History of arthroscopic knee surgery Hx laparoscopic cholecystectomy Family History Family History Father Cancer Other Heart disease Social History Social History (Updated 08/08/20 @ 08:21 by Amy Butcher CMA) Smoking status: Never smoker Alcohol intake: former Alcohol use details: QUIT 30 YEARS AGO Substance use: never Substance use type: does not use Additional occupation/education comments: in the bakery Gender identity (if verbalized by the patient): Male Spiritual care concerns: No Exam Narrative: GENERAL: Well-appearing, well-nourished, and in no acute distress. HEAD: Normocephalic, atraumatic. EYES: EOMI. ENT: Nares clear, no rhinorrhea or epistaxis. Mucous membranes moist. Oropharynx without tonsillar hypertrophy exudate or other lesions. Bilateral TMs pearly maddox non-bulging NECK: Supple. No adenopathy or masses. CHEST: No respiratory distress. Mild scattered wheezes. No rales or rhonchi HEART: Regular rate and rhythm. No murmur heard. Normal peripheral pulses. EXTREMITIES: Normal range of motion. No edema. SKIN: Warm, dry, no rash. NEURO: No focal deficits. Alert and oriented x3. PSYCH: Normal mood and affect Course Vital Signs Vital signs: Vital Signs Temperature 100.2 F H 03/07/21 14:33 Pulse Rate 90 03/07/21 14:33 Respiratory Rate 18 03/07/21 14:33 Blood Pressure 116/92 H 03/07/21 14:33 Pulse Oximetry 97 03/07/21 14:33 Temperature 100.2 F H 03/07/21 14:33 Pulse Rate 90 03/07/21 14:33 Respiratory Rate 18 03/07/21 14:33 Blood Pressure 116/92 H 03/07/21 14:33 Pulse Oximetry 97 03/07/21 14:33 MDM - URI/Sore Throat MDM Narrative Medical decision making narrative: Patient presents to the ER for cold symptoms present since yesterday. Febrile upon arrival. Given dose of antipyretic in the ED. Mild scattered wheezes present on exam. Patient given Albuterol inhaler with relief. Chest x-ray is without acute findings. SARS-CoV-2 was sent. Influenza screen was negative. Patient was instructed on continued care of viral infection. He is to follow-up with primary care doctor. He was given warnings to return to ER Lab Data Labs: Lab Results 03/07/21 Range/Units 17:07 SARS-CoV-2 RNA (RT-PCR) Pending Imaging Data Radiologist's impress
[2021-03-07] MEDS: ACETAMINOPHEN 500 MG TABLET 1000 MG PO (17:05)
[2021-03-07 19:10] VITALS: BP 122/89; PULSE 91; RESP 20; O2SAT 98
[2021-03-08 22:24] LABS: SARS-CoV-2 RNA PCR Negative
== END 2021-03-07 19:12 | disposition home or self-care (01) ==
PROVIDERS: Physician Assistant; Emergency Provider Emergency Medicine; PCP Family Medicine
DX: Z20.822 Contact with and (suspected) exposure to COVID-19 (principal); B34.9 Viral infection, unspecified; J45.909 Unspecified asthma, uncomplicated; E11.9 Type 2 diabetes mellitus without complications; Z79.84 Long term (current) use of oral hypoglycemic drugs; G40.909 Epilepsy, unspecified, not intractable, without status epilepticus
CPT/HCPCS: 71045; 87804; 99283; A9270; C9803; U0003; U0005

== ENCOUNTER → 2021-06-05 02:58 | Outpatient (CLI) | payer BC, SELFPAY ==
[2021-06-05 19:06] LABS: SARS-CoV-2 RNA PCR Negative
== END ==
PROVIDERS: PCP Family Medicine; Visit Provider Internal Medicine Gastroenterology
DX: Z01.812 Encounter for preprocedural laboratory examination (principal); Z20.822 Contact with and (suspected) exposure to COVID-19
CPT/HCPCS: C9803; U0003; U0005

== ENCOUNTER 2021-06-08 00:45 | Day surgery (SDC) | payer BC, SELFPAY ==
[2021-05-28 15:15] VITALS: BMI 25.2
--- NOTE | 2021-06-07 16:10 | P.PNAN_ITS ---
Anes - Eval Pre Procedure Procedure: Operation Date: 06/08/21 10:30 Proposed Procedures p Screening Colonoscopy - Basilio Taylor MD Date/Time: 06/07/21 16:10 Pre Op Diagnosis: neoplasm screening Patient Data Age: 60 Gender: M Height: 1.98 m Weight: 99 kg Allergies Allergy/AdvReac Type Severity Reaction Status Date / Time Penicillins Allergy Unknown UNKNOWN Verified 05/28/21 15:10 phenytoin Allergy Unknown UNKNOWN Verified 05/28/21 15:10 Home Medications Medication Instructions Recorded Confirmed Type Jardiance 25 mg PO DAILY 07/18/20 05/28/21 History metformin 1,000 mg PO DAILY 07/18/20 05/28/21 History saw palmetto 320 mg PO DAILY 07/18/20 05/28/21 History vitamin B complex 1 tablet PO DAILY 07/18/20 05/28/21 History lisinopril 20 mg PO DAILY 12/01/20 05/28/21 History rosuvastatin 10 mg PO DAILY 12/01/20 05/28/21 History aspirin 81 mg PO DAILY 05/28/21 05/28/21 History meclizine 25 mg PO TID PRN 05/28/21 05/28/21 History Patient hx anesthesia problems: none Family hx anesthesia problems: none Results Review: All pre-operative results and documents have been reviewed as part of the pre-operative evaluation. [facility] Past Medical History Medical History Asthma no meds Bronchitis Diabetes mellitus Epilepsy Pneumonia Surgical History Surgical History History of arthroscopic knee surgery Hx laparoscopic cholecystectomy Family History Family History Father Cancer Other Heart disease Social History Social History (Updated 08/08/20 @ 08:21 by Amy Butcher CMA) Smoking status: Never smoker Alcohol intake: never Alcohol use details: QUIT 30 YEARS AGO Substance use: never Substance use type: does not use Additional living arrangements comments: SON LIVES WITH PT Additional occupation/education comments: in the bakery Gender identity (if verbalized by the patient): Male Spiritual care concerns: No Exam Day of Procedure 06/07/21 16:10
[2021-06-08 09:21] VITALS: BP 142/87; PULSE 86; RESP 18; TEMP 36.9; O2SAT 97
--- NOTE | 2021-06-08 09:33 | WPDANESEFPP ---
Anes - Eval Final PreProcedure Day of Procedure 06/08/21 09:33 Patient weight: normal Heart: regular rate and rhythm Lungs: clear to auscultation Airway: Mallampati scale class II Neurological: alert and oriented Last oral intake: >/= 8 hours ASA classification: III Emergent: no Anesthetic plan: proceed Anesthesia type and monitoring: general GIVS and standard monitoring Results Review: All pre-operative results and documents have been reviewed as part of the pre-operative evaluation. Informed Consent: The patient's anesthetic plan and its attendant risks and benefits were discussed with the patient/family/POA. Questions were solicited and answers provided to the satisfaction of the patient/family/POA.
[2021-06-08 09:35] LABS: Glucose Point of Care 126 mg/dl (65-105)
[2021-06-08] MEDS: LACTATED RINGERS 1,000 ML 150 ML IV CONT (09:35)
--- NOTE | 2021-06-08 09:43 | WPDGICN ---
Assessment and Plan Assessment and plan (1) Encounter for screening colonoscopy: Code(s): Z12.11 - Encounter for screening for malignant neoplasm of colon Status: Acute Assessment and Plan: Patient presents for screening colonoscopy. Appears to be at average risk for colon polyps. Other recommendations will be given after endoscopy. GI Consult Note Consult date/time: 06/08/21 09:43 HPI: Delon Umana is a 60 year old male Presents for screening colonoscopy. Patient's current weight appetite and bowel movements are normal. He denies abdominal pain. He has had no bleeding. Family history is noncontributory. Review of Systems Review of Systems: All systems reviewed & are unremarkable except as noted in HPI and below PMFSH Past Medical History Medical History Asthma no meds Bronchitis Diabetes mellitus Epilepsy Pneumonia Surgical History Surgical History History of arthroscopic knee surgery Hx laparoscopic cholecystectomy Family History Family History Father Cancer Other Heart disease Social History Social History (Updated 08/08/20 @ 08:21 by Amy Butcher CMA) Smoking status: Never smoker Alcohol intake: never Alcohol use details: QUIT 30 YEARS AGO Substance use: never Substance use type: does not use Living arrangements: with family Additional living arrangements comments: SON LIVES WITH PT Additional occupation/education comments: in the bakery Gender identity (if verbalized by the patient): Male Spiritual care concerns: No Meds Home Medications and Allergies Home Medications Medication Instructions Recorded Confirmed Type Jardiance 25 mg PO DAILY 07/18/20 05/28/21 History metformin 1,000 mg PO DAILY 07/18/20 05/28/21 History saw palmetto 320 mg PO DAILY 07/18/20 05/28/21 History vitamin B complex 1 tablet PO DAILY 07/18/20 05/28/21 History lisinopril 20 mg PO DAILY 12/01/20 05/28/21 History rosuvastatin 10 mg PO DAILY 12/01/20 05/28/21 History aspirin 81 mg PO DAILY 05/28/21 05/28/21 History meclizine 25 mg PO TID PRN 05/28/21 05/28/21 History Allergies Allergy/AdvReac Type Severity Reaction Status Date / Time Penicillins Allergy Unknown UNKNOWN Verified 06/08/21 09:20 phenytoin Allergy Unknown UNKNOWN Verified 06/08/21 09:20 Vital Signs Vital Signs - 24 hr 06/08/21 09:21 Temperature 98.5 F Pulse Rate 86 Respiratory Rate 18 Blood Pressure 142/87 H Pulse Oximetry 97 Exam Narrative: Physical exam reveals patient to be alert. Vital signs stable. HEENT exam is unremarkable. Patient is anicteric. Lungs are clear to auscultation and percussion. Heart is without murmur or extra sounds. Abdominal exam bowel sounds are present soft nontender with no organomegaly. Digital external rectal exam is normal.
[2021-06-08 10:03] VITALS: BP 117/76; PULSE 77; RESP 17; O2SAT 98
[2021-06-08 10:13] VITALS: BP 117/79; PULSE 76; RESP 26; O2SAT 98
[2021-06-08 10:23] VITALS: BP 127/87; PULSE 74; RESP 21; O2SAT 99
== END 2021-06-08 10:25 | disposition home or self-care (01) ==
PROVIDERS: PCP Family Medicine; Visit Provider Internal Medicine Gastroenterology
PROC: 0DJD8ZZ Inspection of Lower Intestinal Tract, Via Natural or Artificial Opening Endoscopic (ICD-10-PCS; CPT 45378; principal; 2021-06-08 10:30)
DX: Z12.11 Encounter for screening for malignant neoplasm of colon (principal); D12.5 Benign neoplasm of sigmoid colon; E11.9 Type 2 diabetes mellitus without complications; G40.909 Epilepsy, unspecified, not intractable, without status epilepticus; J45.909 Unspecified asthma, uncomplicated; Z79.84 Long term (current) use of oral hypoglycemic drugs; Z46.82 Encounter for fitting and adjustment of non-vascular catheter
CPT/HCPCS: 45385; 82948; 88305; C9803; J2001; J2704; J7120; U0003; U0005

== ENCOUNTER 2021-07-10 08:45 | Emergency (ER) | payer BC, SELFPAY ==
[2021-07-10] VITALS (7 sets, daily range): BP systolic 122–155; BP diastolic 82–98; PULSE 68–89; RESP 16–24; TEMP 36.9; O2SAT 97–100
--- NOTE | ~2021-07-10 | CT_ITS ---
EXAMINATION: CT abdomen pelvis w con EXAM DATE: 07/10/2021 09:56 INDICATION: diarrhea, abd pain . Body aches. Nausea. Started last night. TECHNIQUE: Spiral CT of the abdomen and pelvis was performed following intravenous injection of 100 m L Omnipaque 350. Axial, coronal and sagittal images of the abdomen and pelvis were reviewed. The do se-length product (DLP) for this examination was 632.54 mGy-cm. The exposure was tailored according to patient size (auto mA exposure control), and iterative reconstruction (ASIR) was used as additiona l dose reduction technique. Comparison is made to prior examination from 07/05/2020. FINDINGS: The liver, spleen, adrenal glands and pancreas are unremarkable. There are cholecystectomy clips. Horseshoe kidney, congenital variant. Portal and splenic veins are patent. Kidneys enhance symmetrically. There is no hydronephrosis. The prostate is unremarkable. The bladder is unremarka ble. There is no retroperitoneal or pelvic lymphadenopathy. There is mild scattered arteriosclerot ic disease. The appendix is normal. The stomach and small bowel are unremarkable. There is expected amount of c olonic stool. No free intraperitoneal gas. The heart is normal in size. There are no pericardial or pleural effusions. The lung bases are unremarkable. There are no osteoblastic or osteolytic les ions identified. IMPRESSION: 1. No acute intra-abdominal findings. 2. Horseshoe kidney Reviewed, dictated and finalized at location A. [employer]
--- NOTE | ~2021-07-10 | XR_ITS ---
EXAMINATION: XR chest 1V portable INDICATION: Cough, myalgia TECHNIQUE: Portable AP chest at 0935 hours COMPARISON: 03/07/2021 FINDINGS: The lungs are free of acute opacities. There is no pleural effusion or pneumothorax. The ca rdiomediastinal silhouette is normal. IMPRESSION: 1. No acute cardiopulmonary abnormality. Reviewed, dictated and finalized at location B. STRAIGHTENER
[2021-07-10 09:20] LABS: Basophils Percent Auto 0.6 % (0.2-1.2); Eosinophils Absolute Auto 0.1 K/mm3 (0-0.3); Eosinophils Percent Auto 1.3 % (0-4.4); Hematocrit 48.4 % (42.0-52.0); Hemoglobin 16.2 g/dL (14.0-18.0); Immature Granulocyte Absolute 0.02 K/mm3 (0.00-0.031); Immature Granulocyte Percent A 0.3 % (0-0.5); Lymphocytes Absolute Auto 0.86 K/mm3 (0.9-3.2); Lymphocytes Percent Auto 12.7 % (18.3-44.2); Mean Corpuscular HGB Conc 33.5 g/dl (32-36); Mean Corpuscular Hemoglobin 29.5 pg (26-34); Mean Platelet Volume 10.1 fl (7.4-10.4); Monocytes Absolute Auto 0.6 K/mm3 (0.1-0.6); Monocytes Percent Auto 8.3 % (2.6-8.5); Neutrophils Absolute Auto 5.2 K/mm3 (1.3-6.7); Neutrophils Percent Auto 76.8 % (45.5-73.1); Platelet Count Result 218 k/mm3 (150-375); Red Cell Distribution Width 11.6 % (11.5-14.5); White Blood Count 6.8 K/mm3 (4.5-10.0)
[2021-07-10 09:24] LABS: Add Urine Microscopic? YES; Appearance Urine Clear (Clear); Bilirubin Urine Negative (Negative); Blood Urine Negative (Negative); Color Urine Yellow (Yellow); Glucose Urine UA 3+ mg/dL (Negative); Ketones Urine 1+ mg/dL (Negative); Leukocyte Esterase Ur Negative LEU/UL (Negative); Nitrate Urine Negative (Negative); Protein Urine Negative (Negative); RBC Urine 0-2 /hpf (0-2); Urobilinogen Urine Negative mg/dL (<2.0); WBC Urine 0-3 /hpf
--- NOTE | 2021-07-10 09:27 | ED.NAVMDI ---
HPI - Nausea/Vomiting/Diarrhea General Chief complaint: Nausea/Vomiting/Diarrhea Stated complaint: mult GI c/o Time Seen by Provider: 07/10/21 09:02 Source: patient Mode of arrival: ambulatory Limitations: no limitations History of Present Illness HPI Narrative: This is a 60-year-old male that presents to the emergency department for cold symptoms present since yesterday. Reports headache, myalgias, cough, nausea and diarrhea. He is influenza vaccinated. He is not COVID vaccinated. Also reports he scraped his foot at work 4 days ago. Denies any surrounding redness or abnormal drainage from the area. Denies fevers, vomiting, dysuria, hematuria. Related Data Home Medications Medication Instructions Recorded Confirmed Jardiance 25 mg PO DAILY 07/18/20 05/28/21 metformin 1,000 mg PO DAILY 07/18/20 05/28/21 saw palmetto 320 mg PO DAILY 07/18/20 05/28/21 vitamin B complex 1 tablet PO DAILY 07/18/20 05/28/21 lisinopril 20 mg PO DAILY 12/01/20 05/28/21 rosuvastatin 10 mg PO DAILY 12/01/20 05/28/21 aspirin 81 mg PO DAILY 05/28/21 05/28/21 meclizine 25 mg PO TID PRN 05/28/21 05/28/21 Allergies Allergy/AdvReac Type Severity Reaction Status Date / Time Penicillins Allergy Unknown UNKNOWN Verified 06/08/21 09:20 phenytoin Allergy Unknown UNKNOWN Verified 06/08/21 09:20 Review of Systems Review of Systems: CONSTITUTIONAL: Denies fever RESPIRATORY: Denies dyspnea. GASTROINTESTINAL: Reports nausea and diarrhea. Denies abdominal pain, vomiting GENITOURINARY: Denies dysuria or hematuria. All systems reviewed & are unremarkable except as noted in HPI and below PMFSH Past Medical History Medical History Asthma no meds Bronchitis Diabetes mellitus Epilepsy Pneumonia Surgical History Surgical History History of arthroscopic knee surgery Hx laparoscopic cholecystectomy Family History Family History Father Cancer Other Heart disease Social History Social History (Updated 08/08/20 @ 08:21 by Amy Butcher [facility] Smoking status: Never smoker Alcohol intake: never Alcohol use details: QUIT 30 YEARS AGO Substance use: never Substance use type: does not use Additional living arrangements comments: SON LIVES WITH PT Additional occupation/education comments: in the bakery Gender identity (if verbalized by the patient): Male Spiritual care concerns: No Exam Narrative: GENERAL: Well-appearing, well-nourished, and in no acute distress. HEAD: Normocephalic, atraumatic. EYES: EOMI. CHEST: Clear to auscultation. No respiratory distress. No wheezes rales or rhonchi HEART: Regular rate and rhythm. No murmur heard. Normal peripheral pulses. ABDOMEN: Soft, nontender, nondistended, normal active bowel sounds. No CVA tenderness EXTREMITIES: Normal range of motion. No edema. Right lower leg over the Achilles tendon with 1.5cm area of skin avulsion that appears to be healing. No concerning surrounding erythema or abnormal drainage SKIN: Warm, dry, no rash. NEURO: No focal deficits. Alert and oriented x3. PSYCH: Normal mood and affect Course Vital Signs Vital signs: Vital Signs Temperature 98.5 F 07/10/21 08:50 Pulse Rate 86 07/10/21 08:50 Respiratory Rate 18 07/10/21 08:50 Blood Pressure 122/82 07/10/21 08:50 Pulse Oximetry 100 07/10/21 08:50 Temperature 98.5 F 07/10/21 08:50 Pulse Rate 87 07/10/21 09:01 Respiratory Rate 24 H 07/10/21 09:01 Blood Pressure 155/87 H 07/10/21 09:19 Pulse Oximetry 97 07/10/21 09:00 MDM - Nausea/Vomiting/Diarrhea MDM Narrative Medical decision making narrative: Patient presents to the emergency department for nausea, diarrhea, headache, cough. Patient is afebrile and nontoxic-appearing. His vitals are stable. CBC without concerning findings. Metabolic panel shows h
[2021-07-10 09:32] LABS: Alanine Aminotransferase 20 U/L (4-50); Albumin Level 4.6 g/dL (3.5-5.1); Alkaline Phosphatase 128 U/L (38-126); Anion Gap 10 mmol/L (8-16); Aspartate Amino Transferase 26 U/L (17-59); Bilirubin,Total 2.6 mg/dL (0.2-1.3); Blood Urea Nitrogen 17 mg/dL (9-20); Calcium 8.6 mg/dL (8.4-10.2); Carbon Dioxide 24 mmol/L (22-30); Chloride 101 mmol/L (98-107); Estimated CRCL calculation 102 ml/min; Estimated Glomerular Filt Rate > 60; Glucose 192 mg/dL (65-110); Lipase 46 U/L (23-300); Sodium 135 mmol/L (137-145)
[2021-07-10 09:35] LABS: Specific Grav Ur 1.033 (1.001-1.035)
[2021-07-10] MEDS: SODIUM CHLORIDE 0.9% IV 500 ML 999 ML IV CONT (10:01)
[2021-07-10] MEDS: ONDANSETRON INJ 4 MG/2 ML VIAL IV PUSH (10:01)
[2021-07-10] MEDS: TETANUS,DIPHTHERIA,AC PERTUSSIS ADULT (0.5 ML) BOOSTRIX IM (10:02)
[2021-07-10 10:34] LABS: SARS-CoV-2 RNA PCR Negative
== END 2021-07-10 11:58 | disposition home or self-care (01) ==
PROVIDERS: Physician Assistant; Emergency Provider Emergency Medicine; PCP Family Medicine
DX: B34.9 Viral infection, unspecified (principal); S81.801A Unspecified open wound, right lower leg, initial encounter; Z20.822 Contact with and (suspected) exposure to COVID-19; Z23 Encounter for immunization; E11.9 Type 2 diabetes mellitus without complications; G40.909 Epilepsy, unspecified, not intractable, without status epilepticus; Z79.84 Long term (current) use of oral hypoglycemic drugs; Z87.01 Personal history of pneumonia (recurrent); Q63.1 Lobulated, fused and horseshoe kidney; X58.XXXA Exposure to other specified factors, initial encounter
CPT/HCPCS: 36415; 51701; 71045; 74177; 80053; 81001; 83690; 85025; 87804; 90471; 90715; 96365; 96375; 99284; C9803; J0131; J2405; J7040; Q9967; U0003; U0005

== ENCOUNTER 2021-09-17 03:33 | Emergency (ER) | payer BC, SELFPAY ==
--- NOTE | ~2021-09-17 | XR_ITS ---
EXAMINATION: [id number] DATE: 09/17/2021 04:09 INDICATION: Anterolateral left lower rib pain post fall TECHNIQUE: PA view of the chest and 3 views of the left ribs were obtained. COMPARISON: Chest radiograph dated 06/13/2020 FINDINGS: No rib fractures identified. Biapical pleural-parenchymal scarring. No other airspace opacities, pulm onary edema, pleural effusion or pneumothorax. Cardiomediastinal silhouette is normal. Cholecystectom y clips in the right upper quadrant. IMPRESSION: 1. No rib fracture or acute cardiopulmonary disease. Reviewed, dictated and finalized at location A.
[2021-09-17 03:36] VITALS: BP 147/89; PULSE 72; RESP 18; TEMP 36.3; O2SAT 100
[2021-09-17] MEDS: ACETAMINOPHEN/CODEINE (*CRX) 300/30 MG TABLET 1 TAB PO (04:09)
--- NOTE | 2021-09-17 04:42 | ED.FALL ---
HPI - Fall General Chief Complaint: Fall Stated Complaint: Fall on fri, persistant ABD pain since Time Seen by Provider: 09/17/21 03:44 History of Present Illness HPI Narrative: 61-year-old male presenting with left side pain after landing on his arm 3 days ago, denies any arm pain, endorses tenderness left side, pain with deep breath. Related Data Home Medications Medication Instructions Recorded Confirmed Jardiance 25 mg PO DAILY 07/18/20 05/28/21 metformin 1,000 mg PO DAILY 07/18/20 05/28/21 saw palmetto 320 mg PO DAILY 07/18/20 05/28/21 vitamin B complex 1 tablet PO DAILY 07/18/20 05/28/21 lisinopril 20 mg PO DAILY 12/01/20 05/28/21 rosuvastatin 10 mg PO DAILY 12/01/20 05/28/21 aspirin 81 mg PO DAILY 05/28/21 05/28/21 meclizine 25 mg PO TID PRN 05/28/21 05/28/21 Allergies Allergy/AdvReac Type Severity Reaction Status Date / Time Penicillins Allergy Unknown UNKNOWN Verified 09/17/21 03:44 phenytoin Allergy Unknown UNKNOWN Verified 09/17/21 03:44 Review of Systems Review of Systems: CONST: No fever. HEENT: No sore throat C/V: No chest pain RESP: Pain with deep breaths GI: Left side pain : No flank pain. M/S: No arm pain SKIN: No rash. NEURO: [No focal numbness or weakness] PSYCH: [No depression] [facility] Past Medical History Medical History Asthma no meds Bronchitis Diabetes mellitus Epilepsy Pneumonia Surgical History Surgical History History of arthroscopic knee surgery Hx laparoscopic cholecystectomy Family History Family History Father Cancer Other Heart disease Social History Social History Smoking status: Never smoker Alcohol intake: never Alcohol use details: QUIT 30 YEARS AGO Substance use: never Substance use type: does not use Additional living arrangements comments: SON LIVES WITH PT Additional occupation/education comments: in the [employer] Gender identity (if verbalized by the patient): Male Spiritual care concerns: No Exam Narrative: EXAMINATION OF ORGAN SYSTEMS/BODY AREAS: GENERAL:[No acute distress, non-toxic appearing.] HEAD: Normal with no signs of head trauma. ENT: Hearing grossly intact LUNGS: Nonlabored breathing. HEART: [Regular rate and rhythm] ABD: [Soft], [tender to palpation left side/rib] EXT: Normal range of motion SKIN: [No rashes or lesions.] NEURO: [Alert and oriented x 3. No gross focal sensory or strength deficits.] PSYCH: Normal affect Course Course Emergency Course: 61yoM p/w L rib pain s/p fall, VSS, NLR, tenderness palpation left lower ribs, otherwise no tenderness of the abdomen, suspect likely rib fractures versus contusions, x-rays obtained and by my interpretation no obvious displaced fractures, patient is having no issues with breathing here, chest x-ray was clear without atelectasis, patient will be discharged home with Tylenol as needed, return precautions provided and follow-up with primary care doctor. Vital Signs Vital signs: Vital Signs Temperature 97.3 F L 09/17/21 03:36 Pulse Rate 72 09/17/21 03:36 Respiratory Rate 18 09/17/21 03:36 Blood Pressure 147/89 H 09/17/21 03:36 Pulse Oximetry 100 09/17/21 03:36 Temperature 97.3 F L 09/17/21 03:36 Pulse Rate 72 09/17/21 03:36 Respiratory Rate 18 09/17/21 03:36 Blood Pressure 147/89 H 09/17/21 03:36 Pulse Oximetry 100 09/17/21 03:36 Discharge Plan Discharge Clinical Impression: Contusion of rib on left side Qualifiers: Encounter type: initial encounter Qualified Code(s): S20.212A - Contusion of left front wall of thorax, initial encounter Patient Disposition: Home, Self-Care Condition: Stable Instructions: Antibiotic Form, Rib Contusion (ED) Prescriptions: No Action metformin 500 mg tablet extended release 24
[2021-09-17 05:17] VITALS: BP 135/75; PULSE 70; RESP 18; O2SAT 99
== END 2021-09-17 05:20 | disposition home or self-care (01) ==
PROVIDERS: Emergency Provider Emergency Medicine; PCP Family Medicine
DX: S20.212A Contusion of left front wall of thorax, initial encounter (principal); E11.9 Type 2 diabetes mellitus without complications; J45.909 Unspecified asthma, uncomplicated; G40.909 Epilepsy, unspecified, not intractable, without status epilepticus; Z87.01 Personal history of pneumonia (recurrent); Z79.84 Long term (current) use of oral hypoglycemic drugs; Z79.82 Long term (current) use of aspirin
CPT/HCPCS: 71101; 99283; A9270

== ENCOUNTER 2021-12-04 04:20 | Emergency (ER) | payer BC, SELFPAY ==
[2021-12-04 04:23] VITALS: BP 174/86; PULSE 103; RESP 20; TEMP 38.6; O2SAT 98
== END 2021-12-04 05:55 | disposition left against medical advice (07) ==
LOC: ANHED 05:14
PROVIDERS: PCP Family Medicine
DX: R10.9 Unspecified abdominal pain (principal)
CPT/HCPCS: 99199